=== PATIENT | male | born 1960 | race Caucasian/White ===

== ENCOUNTER 2017-12-12 10:59 | Observation (INO) | payer MEDICARE, OTHER ==
[2017-12-12 11:42] LABS: #Lymphocytes 0.6 thou/uL (1.20-3.40); #Monocytes 0.6 thou/uL (0.11-0.59); #Neutrophils 5.5 thou/uL (1.40-6.50); %Basophils 0.3 % (0.0-1.0); %Eosinophils 0.5 % (0.0-10.0); %Monocytes 9.3 % (0.0-10.0); %Neutrophils 80.8 % (42.0-75.0); Hemoglobin 12.1 g/dL (14.0-18.0); Mean Corpuscular HGB CONC 32.2 g/dL (32.0-36.0); Mean Corpuscular Volume 86.7 fl (80.0-94.0); Mean Platelet Volume 6.5 fL (7.4-10.4); Platelet Count 196 thou/uL (130-400); RBC Distribution Width 13.6 % (11.5-14.5); Red Blood Cell (RBC) Count 4.35 mill/uL (4.70-6.10); White Blood Cell (WBC) Count 6.8 thou/uL (4.8-10.8)
[2017-12-12 12:06] LABS: ALT (SGPT) 20 U/L (8-55); AST (SGOT) 14 U/L (5-34); Albumin 4.1 g/dL (3.5-5.0); Alkaline Phosphatase 69 U/L (40-150); Anion Gap 12 mmol/L (10-20); BUN (Urea Nitrogen) 25 mg/dL (8.4-25.7); Bilirubin, Total 0.5 mg/dL (0.2-1.2); CK (CPK) 33 U/L (30-200); Calc. Creatinine Clearance 0 mL/min (70-130); Calcium 8.7 mg/dL (7.8-10.44); Carbon Dioxide 26 mmol/L (22-29); Chloride 100 mmol/L (98-107); Estimated GFR-MDRD 69; Globulin 1.9 g/dL (2.4-3.5); Glucose 111 mg/dL (70-105); Potassium 4.5 mmol/L (3.5-5.1); Sodium 133 mmol/L (136-145)
[2017-12-12 12:08] LABS: CKMB 0.5 ng/mL (0-6.6); Troponin I 0.011 ng/mL (< 0.028)
--- NOTE | 2017-12-12 12:19 | RAD ---
SINGLE VIEW OF THE CHEST: HISTORY: Chest pain. COMPARISON: None. FINDINGS: Single view of the chest show normal sized cardiomediastinal silhouette. There is no evidence of cons olidation, mass, or pleural effusion. The bones are unremarkable. IMPRESSION: No evidence of acute cardiopulmonary disease. POS: [facility]
[2017-12-12] MEDS ORDERED: Water For Injection,Sterile 20 ML ONE (12:30)
[2017-12-12] MEDS ORDERED: methylPREDNISolone Sod Succ/PF 125 MG/2 ML VIAL ONE (12:30)
[2017-12-12] MEDS ORDERED: Nitroglycerin 2% Ointment 1 INCH/1 GM Packet ONE (12:30)
[2017-12-12] MEDS ORDERED: Albuterol Sulfate 2.5 mg/3 ml Neb ONE (12:45)
[2017-12-12] MEDS ORDERED: Albuterol Sulfate 2.5 mg/0.5 ml Neb ONE (12:45)
[2017-12-12] MEDS ORDERED: Oseltamivir 75 MG CAP PO SCH ×2 (14:00→21:00)
[2017-12-12] MEDS ORDERED: Acetaminophen 325 MG TAB PO PRN ×2 (14:47→14:56)
[2017-12-12] MEDS ORDERED: Ondansetron ODT 4 MG TAB SL PRN (14:47)
[2017-12-12] MEDS ORDERED: Ondansetron HCl/PF 4 MG/2 ML Vial IVP PRN ×2 (14:47→14:56)
[2017-12-12] MEDS ORDERED: Albuterol Sulfate 2.5 mg/3 ml Neb NEB PRN (14:48)
[2017-12-12] MEDS ORDERED: Loperamide HCl 2 MG CAP PO PRN (14:56)
[2017-12-12] MEDS ORDERED: Artificial Tears 18 DROP/0.9 ML EA EYE PRN (14:56)
[2017-12-12] MEDS ORDERED: Eucerin (Mineral Oil/Petrolatum,White) 30 gm Jar TOP PRN (14:56)
[2017-12-12] MEDS ORDERED: Milk Of Magnesia 30 ML UDCUP PO PRN (14:56)
[2017-12-12] MEDS ORDERED: Loratadine 10 MG TAB PO PRN (14:56)
[2017-12-12] MEDS ORDERED: Benzonatate 100 MG CAP PO PRN (14:56)
[2017-12-12] MEDS ORDERED: hydrALAZINE 20 MG/ML VIAL SLOW IVP PRN (14:56)
[2017-12-12] MEDS ORDERED: Senokot 8.6 MG TAB PO PRN (14:56)
[2017-12-12] MEDS ORDERED: Chloraseptic Spray 180 ml Bottle PO PRN (14:56)
[2017-12-12] MEDS ORDERED: Sodium Chloride 0.65% Nasal 44 ML BOT EA NARE PRN (14:56)
[2017-12-12] MEDS ORDERED: Nitroglycerin 0.4 MG TAB (25 Tab Bottle) SL PRN (14:56)
[2017-12-12] MEDS ORDERED: Ondansetron ODT 4 MG TAB PO PRN (14:56)
[2017-12-12] MEDS ORDERED: Mag-Al 1200 mg/1200 mg/30 ML UDCUP PO PRN (14:56)
[2017-12-12] MEDS ORDERED: Zolpidem Tartrate 5 MG TAB PO PRN (14:56)
--- NOTE | 2017-12-12 15:20 | HP ---
PRIMARY CARE PHYSICIAN: [place] call. REASON FOR ADMISSION: Transfer from [facility] for chest pain. HISTORY OF PRESENT ILLNESS: A 57-year-old male who has multiple medical problems including COPD, coronary artery disease, morbid obesity, hypertension, and dyslipidemia, who went to [place] [facility] with complaint of fever, chills, cough, generalized weakness, body ache, runny nose, and sore throat. The patient was having flu-like illness, this started yesterday. He was having cough which was dry in nature and because of cough, he was hurting in his chest and back. He was also hurting entire his body. He was having fever and chills. He was feeling more weak. He started to have runny nose last night. He denies any angina. He denies any orthopnea, PND, or leg swelling. He denies any palpitation, dizziness or syncope. He does have COPD and he is chronically feeling shortness of breath. Last night, he had 2 diarrhea and 1 vomiting. Whenever he takes a deep breath, he has to cough and that cough causing his chest hurt. He denies any recent travel, sick exposure. He denies any abdominal pain. He denies any headache, focal motor or sensory symptoms. This patient was completely tested at [facility] and all blood test was completely normal. His influenza A was positive. Other routine blood tests were unremarkable. This patient was transferred to our emergency room for rule out ACS. PAST MEDICAL HISTORY: Coronary artery disease with stent, peripheral vascular disease, morbid obesity, hypertension, dyslipidemia, gout, COPD, borderline diabetes, ex-smoker. PAST SURGICAL HISTORY: Cardiac catheterization with stent placement. PAST PSYCHIATRIC HISTORY: Reviewed and negative. SOCIAL HISTORY: The patient is a former smoker. He quit smoking last year. He denies any alcohol abuse. He denies any other illicit drug abuse. ALLERGIES: No known drug allergies. CURRENT HOME MEDICATIONS: Daliresp 500 mcg p.o. daily, Dulera 1 inhalation b.i.d., Proventil inhalation q.6 hourly p.r.n., Ranexa 500 mg p.o. b.i.d., Spiriva 18 mcg inhalation daily, Xarelto 20 mg p.o. daily, allopurinol 300 mg p.o. daily, aspirin 81 mg p.o. daily, Lipitor 40 mg p.o. daily, Plavix 75 mg p.o. daily, Lasix 40 mg p.o. b.i.d., gabapentin 300 mg p.o. t.i.d., lisinopril 20 mg p.o. daily, metoprolol 25 mg p.o. b.i.d., ranitidine 150 mg p.o. daily. FAMILY HISTORY: No strong family history of premature coronary artery disease, stroke or cancer. EMERGENCY ROOM COURSE: The patient was given Xopenex nebulization, nitroglycerin sublingual, and Tamiflu. The patient was also given aspirin, Tylenol, morphine 5 mg, and IV fluid. REVIEW OF SYSTEMS: All review of system reviewed and negative except as mentioned in HPI. Constitutional: Weight loss or gain, ability to conduct usual activities. Skin: Rash, itching. Eyes: Double vision, pain. ENT/Mouth: Nose bleeding, neck stiffness, pain, tenderness. Cardiovascular: Palpitations, dyspnea on exertion, orthopnea. Respiratory: Shortness of breath, wheezing, cough, hemoptysis, fever or night sweats. Gastrointestinal: Poor appetite, abdominal pain, heartburn, nausea, vomiting, constipation, or diarrhea. Genitourinary: Urgency, frequency, dysuria, nocturia. Musculoskeletal: Pain, swelling. Neurologic/Psychiatric: Anxiety, depression. Allergy/Immunologic: Skin rash, bleeding tendency. PHYSICAL EXAMINATION: VITAL SIGNS: Currently in our emergency room, blood pressure 98/53, pulse 90, respiratory rate 18, temperature 99.1, saturation 97% on 2 liters oxygen, weight 154.2 kilograms. GENERAL: The patient is currently alert, awake, appears weak, in no obvious acute distress. HEAD: Normocephalic, atraumatic. EYES: Pupils round, reactive to light. Extraocular muscle intact. ENT: Oropharynx within normal limits. Moist mucous membranes. Pharyngeal erythema noted. LUNGS: Wheezing present. Bilateral air entry reduced. No rales. CARDIOVASCULAR: S1, S2 regular. No murmur, no gallop, no rub. CHEST WALL: Tenderness noted. NECK: Supple, no JVD, no thyromegaly, no carotid bruit, no meningeal signs of irritation. ABDOMEN: Morbid obesity limiting examination. Bowel sounds present, nontender , nondistended. No organomegaly, no mass, no suprapubic tenderness. BACK: Unremarkable, no CVA tenderness. EXTREMITIES: Upper extremity: Passive movements of all joints are normal. Lower extremities: No edema. Good peripheral pulsation. Chronic venous insufficiency findings noted on both lower extremities. Hyperkeratosis and chronic skin changes in both lower extremities. Good distal pulsation. SKIN: Chronic hyperkeratosis in lower extremity. PSYCHIATRIC: Normal affect. NEUROLOGIC: The patient is moving all four limbs, plantar bilateral flexor. No focal neurological deficit noted. SIGNIFICANT LABORATORY DATA: EKG showing normal sinus rhythm, left anterior fascicular block. Chest x-ray done at [facility], which is completely normal. Blood test done at [place] [facility], influenza A positive. Sodium 131, potassium 4.4, chloride 97, carbon dioxide 22, anion gap 15, glucose 125, BUN 29, creatinine 1.1, bilirubin 0.9, alkaline phosphatase 74 , AST 20, ALT 28, protein 7.20, albumin 4.5. Lactic acid 1.3. WBC 8.6, hemoglobin 13.0, platelet 213. EKG normal sinus rhythm without any acute ischemic changes. Chest x-ray within normal limits. In our emergency room, CBC normal. Sodium 133. BMP normal. Cardiac enzymes negative. D-dimer also negative 0.38 and chest x-ray also normal. ASSESSMENT AND PLAN: 1. Chest pain. This patient's chest pain is noncardiac, it is related with coughing spell. He has chest wall tenderness. The patient also does not want to go for any stress testing. His troponin is negative. His electrocardiogram is normal and his D-dimer is negative. This patient does not need any further investigation. We will do a total of 3 sets of cardiac enzyme and we will control his pain with pain medication. 2. Influenza A. This patient has fever, chills, body ache, headache, cough, sore throat, runny nose. All symptoms related with influenza and it is tested positive. We will continue with Tamiflu 75 mg p.o. b.i.d. 3. Chronic obstructive pulmonary disease. The patient is taking Daliresp 500 mcg p.o. daily. We will continue Dulera 2 puffs inhalation b.i.d. and DuoNeb q.6 hourly p.r.n., Spiriva 18 mcg inhalation daily. 4. Coronary artery disease with stent. Continue Ranexa 500 mg p.o. b.i.d., aspirin 81 mg p.o. daily, Plavix 75 mg p.o. daily, metoprolol 25 mg p.o. b.i.d. , Lipitor 40 mg p.o. daily, and lisinopril 20 mg p.o. daily. 5. Gout. We will continue allopurinol 300 mg p.o. daily. 6. Hypertension. Continue Lisinopril 20 mg p.o. daily, metoprolol 25 mg p.o. b.i.d. 7. Dyslipidemia. Check lipid profile tomorrow and continue Lipitor 40 mg p.o. at bedtime. 8. History of congestive heart failure. We will repeat echocardiography. We will continue with Lasix 40 mg p.o. b.i.d. 9. Chronic anticoagulation. The patient is taking Xarelto 20 mg p.o. daily and we will check PT/INR. 10. Gastroesophageal reflux disease. We will continue Pepcid 20 mg p.o. b.i.d. 11. Morbid obesity. Dietary education given, weight loss education given. Healthy lifestyle measure discussed with the patient. 12. Deep venous thrombosis prophylaxis. The patient is already on Xarelto therapy. 13. Gastrointestinal prophylaxis. Pepcid 20 mg p.o. b.i.d. 14. Code status: The patient is FULL CODE. The patient does not have any surrogate decision maker. Disposition plan based on clinical course, likely within 24 hours. Plan of care discussed with the patient in detail. [facility]
[2017-12-12] MEDS: Diabetic Tussin 200 MG/10 ML UDCUP PO PRN ×2 (15:39→19:18)
[2017-12-12] MEDS: HYDROcodone/Acetaminophen 5/325 mg Tablet PO PRN ×2 (15:39→19:17)
[2017-12-12] MEDS: Gabapentin 300 MG CAP PO SCH ×2 (15:40→20:20)
[2017-12-12 15:50] LABS: Troponin I 0.015 ng/mL (< 0.028)
[2017-12-12] MEDS: methylPREDNISolone Sod Succ/PF 125 MG/2 ML VIAL IVP SCH (17:43)
[2017-12-12 18:37] LABS: Troponin I Less than 0.010 ng/mL (< 0.028)
[2017-12-12] MEDS: Mometasone/Formoterol 120 PUFF INHALER INH SCH (19:16)
[2017-12-12] MEDS: Famotidine 20 MG TAB PO SCH (20:19)
[2017-12-12] MEDS: Oseltamivir 75 MG CAP PO SCH (20:19)
[2017-12-12] MEDS: guaiFENesin ER 600 MG TAB PO SCH (20:20)
[2017-12-12] MEDS: Metoprolol Tartrate 25 MG TAB PO SCH (20:20)
[2017-12-12] MEDS ORDERED: Atorvastatin Calcium 40 MG TAB PO SCH (21:00)
[2017-12-13] MEDS: methylPREDNISolone Sod Succ/PF 125 MG/2 ML VIAL IVP SCH ×3 (00:02→10:46)
[2017-12-13] MEDS: HYDROcodone/Acetaminophen 5/325 mg Tablet PO PRN (05:38)
[2017-12-13] MEDS: Diabetic Tussin 200 MG/10 ML UDCUP PO PRN (05:39)
[2017-12-13 05:54] VITALS: TEMP 97.9
[2017-12-13] MEDS ORDERED: Rivaroxaban 10 MG TAB PO SCH (06:00)
[2017-12-13] MEDS: Mometasone/Formoterol 120 PUFF INHALER INH SCH (06:46)
[2017-12-13] MEDS ORDERED: Spiriva 18 MCG CAP (Box of 5 Caps) INH SCH (07:00)
[2017-12-13 08:04] VITALS: BP 117/60
[2017-12-13] MEDS ORDERED: Lisinopril 20 MG TAB PO SCH (09:00)
[2017-12-13] MEDS ORDERED: Non-Formulary Item 1 EACH (Roflumilast [Daliresp] 500 MCG) PO SCH (09:00)
[2017-12-13] MEDS ORDERED: Clopidogrel Bisulfate 75 MG TAB PO SCH (09:00)
[2017-12-13] MEDS ORDERED: Roflumilast [Daliresp] 500 MCG PO SCH (09:00)
[2017-12-13] MEDS ORDERED: Allopurinol 300 MG TAB PO SCH (09:00)
[2017-12-13] MEDS ORDERED: Furosemide 40 MG TAB PO SCH (09:00)
[2017-12-13] MEDS: Oseltamivir 75 MG CAP PO SCH (09:24)
[2017-12-13] MEDS: guaiFENesin ER 600 MG TAB PO SCH (09:24)
[2017-12-13] MEDS: Metoprolol Tartrate 25 MG TAB PO SCH (09:24)
[2017-12-13] MEDS: Famotidine 20 MG TAB PO SCH (09:25)
[2017-12-13] MEDS: Gabapentin 300 MG CAP PO SCH (09:25)
--- NOTE | 2017-12-13 10:16 | PDOC.PN ---
- Subjective Encounter Start Date: 12/13/17 Encounter Start Time: 07:20 Patient seen and examined. No new complaints. No overnight events - Objective Resuscitation Status: Resuscitation Status FULL:Full Resuscitation MAR Reviewed: Yes Vital Signs & Weight: Vital Signs (12 hours) Temp Pulse Resp BP Pulse Ox 12/13/17 07:12 97.9 F 79 20 117/60 97 12/13/17 06:46 76 16 12/13/17 06:40 98 12/13/17 06:39 76 16 12/13/17 04:47 97.9 F 76 20 119/65 98 12/13/17 04:40 98 12/13/17 00:25 97.5 F L 75 20 133/67 99 12/12/17 23:25 82 16 Weight Weight 334 lb I&O: 12/12/17 12/13/17 12/14/17 06:59 06:59 06:59 Intake Total 672 Balance 672 Result Diagrams: 12/12/17 11:29 12/12/17 11:29 Phys Exam - Physical Examination Constitutional: NAD HEENT: PERRLA, moist MMs, sclera anicteric Neck: no JVD, supple Respiratory: no wheezing, no rales, no rhonchi Cardiovascular: RRR, no significant murmur, no rub Gastrointestinal: soft, non-tender, no distention, positive bowel sounds Musculoskeletal: no edema, pulses present Neurological: non-focal, normal sensation, moves all 4 limbs Lymphatic: no nodes Psychiatric: normal affect, A&O x 3 Skin: no rash, normal turgor Dx/Plan (1) Chest wall pain Code(s): R07.89 - OTHER CHEST PAIN Status: Acute (2) Influenza A Code(s): J10.1 - FLU DUE TO OTH IDENT INFLUENZA VIRUS W OTH RESP MANIFEST Status: Acute (3) CAD (coronary artery disease) Code(s): I25.10 - ATHSCL HEART DISEASE OF [place] CORONARY ARTERY W/O ANG PCTRS Status: Chronic (4) COPD (chronic obstructive pulmonary disease) Status: Chronic (5) Chronic anticoagulation Code(s): Z79.01 - TRANSCRIPT CLERK (CURRENT) USE OF ANTICOAGULANTS Status: Chronic (6) Chronic venous insufficiency Status: Chronic (7) Dyslipidemia Code(s): E78.5 - HYPERLIPIDEMIA, UNSPECIFIED Status: Chronic (8) GERD (gastroesophageal reflux disease) Code(s): K21.9 - GASTRO-ESOPHAGEAL REFLUX DISEASE WITHOUT ESOPHAGITIS Status: Chronic (9) Gout Code(s): M10.9 - GOUT, UNSPECIFIED Status: Chronic (10) Hypertension Code(s): I10 - ESSENTIAL (PRIMARY) HYPERTENSION Status: Chronic (11) Morbid obesity with BMI of 45.0-49.9, adult Code(s): E66.01 - MORBID (SEVERE) OBESITY DUE TO EXCESS CALORIES; Z68.42 - BODY MASS INDEX (BMI) 45.0-49.9, ADULT Status: Chronic (12) LETY (obstructive sleep apnea) Code(s): G47.33 - OBSTRUCTIVE SLEEP APNEA (ADULT) (PEDIATRIC) Status: Chronic - Plan cont current plan of care, continue antibiotics * medication reviewed as below * symptomatic treatment * see discharge ashley. Review of Systems - Review of Systems ENT: negative: Ear Pain, Ear Discharge, Nose Pain, Nose Discharge, Nose Congestion, Mouth Pain, Mouth Swelling, Throat Pain, Throat Swelling, Other Respiratory: negative: Cough, Dry, Shortness of Breath, Hemoptysis, SOB with Excertion, Pleuritic Pain, Sputum, Wheezing Cardiovascular: negative: chest pain, palpitations, orthopnea, paroxysmal nocturnal dyspnea, edema, light headedness, other Gastrointestinal: negative: Nausea, Vomiting, Abdominal Pain, Diarrhea, Constipation, Melena, Hematochezia, Other Genitourinary: negative: Dysuria, Frequency, Incontinence, Hematuria, Retention , Other Musculoskeletal: negative: Neck Pain, Shoulder Pain, Arm Pain, Back Pain, Hand Pain, Leg Pain, Foot Pain, Other Skin: negative: Rash, Lesions, Griffin, Bruising, Other - Medications/Allergies Allergies/Adverse Reactions: Allergies Allergy/AdvReac Type Severity Reaction Status Date / Time No Known Allergies Allergy Unverified 12/12/17 13:57 Medications: Current Medications Acetaminophen (Tylenol) 650 mg PO Q4H PRN PRN Reason: Headache/Fever or Pain Hydrocodone Bitart/Acetaminophen ([place] 5/325) 1 tab PO Q4H PRN PRN Reason: Moderate Pain (4-6) Last Admin: 12/13/17 05:38 Dose: 1 tab Al Hydroxide/Mg Hydroxide (Maalox) 30 ml PO Q6H PRN PRN Reason: Heartburn or Indigestion Albuterol/Ipratropium (Duoneb) 3 ml NEB [id number] Last Admin: 12/13/17 06:39 Dose: 3 ml Allopurinol (Zyloprim) 300 mg PO DAILY [facility] Last Admin: 12/13/17 09:24 Dose: 300 mg Artificial Tears (Tears Naturale) 0 drop EA EYE PRN PRN PRN Reason: Dry Eyes Aspirin (Aspirin Chewable) 81 mg PO DAILY [facility] Last Admin: 12/13/17 09:24 Dose: 81 mg Atorvastatin Calcium (Lipitor) 40 mg PO HS [facility] Last Admin: 12/12/17 20:20 Dose: 40 mg Benzonatate (Tessalon) 100 mg PO Q4H PRN PRN Reason: Cough Clopidogrel Bisulfate (Plavix) 75 mg PO DAILY [facility] Last Admin: 12/13/17 09:24 Dose: 75 mg Famotidine (Pepcid) 20 mg PO BID [facility] Last Admin: 12/13/17 09:25 Dose: 20 mg Furosemide (Lasix) 40 mg PO BID [facility] Last Admin: 12/13/17 09:25 Dose: 40 mg Gabapentin (Neurontin) 300 mg PO TID [facility] Last Admin: 12/13/17 09:25 Dose: 300 mg Guaifenesin (Robitussin Sf) 200 mg PO Q4H PRN PRN Reason: Cough Last Admin: 12/13/17 05:39 Dose: 200 mg Guaifenesin (Mucinex) 600 mg PO Q12HR [facility] Last Admin: 12/13/17 09:24 Dose: 600 mg Hydralazine HCl (Apresoline) 10 mg SLOW IVP Q4H PRN PRN Reason: Systolic BP > 180 Lisinopril (Zestril) 20 mg PO DAILY [facility] Last Admin: 12/13/17 09:24 Dose: 20 mg Loperamide HCl (Imodium) 2 mg PO PRN PRN PRN Reason: Diarrhea/Loose Stools Loratadine (Claritin) 10 mg PO DAILYPRN PRN PRN Reason: Sinus Symptoms Magnesium Hydroxide (Milk Of Magnesium) 30 ml PO DAILYPRN PRN PRN Reason: Constipation Methylprednisolone Sodium Succinate (Solu-Medrol) 40 mg IVP Q6HR [facility] Last Admin: 12/13/17 05:28 Dose: 40 mg Metoprolol Tartrate (Lopressor) 25 mg PO BID [facility] Last Admin: 12/13/17 09:24 Dose: 25 mg Mineral Oil/White Petrolatum (Eucerin Cream) 0 gm TOP BIDPRN PRN PRN Reason: Dry Skin Mometasone Furoate/Formoterol Fumar (Dulera 200 Mcg/5 Mcg Inhaler) 2 puff INH BID-RT [facility] Last Admin: 12/13/17 06:46 Dose: 2 puff Nitroglycerin (Nitrostat) 0.4 mg SL Q5MIN PRN PRN Reason: Chest Pain Ondansetron HCl (Zofran Odt) 4 mg PO Q6H PRN PRN Reason: Nausea/Vomiting Ondansetron HCl (Zofran) 4 mg IVP Q6H PRN PRN Reason: Nausea/Vomiting Oseltamivir Phosphate (Tamiflu) 75 mg PO BID [facility] Stop: 12/17/17 09:01 Last Admin: 12/13/17 09:24 Dose: 75 mg Roflumilast [ (Daliresp] 500 Mcg) 0 each PO DAILY [facility] Phenol (Chloraseptic [place] 180 Ml Bot) 0 ml PO PRN PRN PRN Reason: Sore Throat Ranolazine (Ranexa) 500 mg PO BID [facility] Last Admin: 12/13/17 09:24 Dose: 500 mg Rivaroxaban (Xarelto) 20 mg PO 0600 [facility] Last Admin: 12/13/17 05:28 Dose: 20 mg Senna (Senokot) 2 tab PO HSPRN PRN PRN Reason: Constipation Sodium Chloride ([place] Nasal [place] 0.65%) 0 ml EA NARE QIDPRN PRN PRN Reason: Nasal Congestion Sodium Chloride (Flush - Normal Saline) 10 ml IVF PRN PRN PRN Reason: Saline Flush Last Admin: 12/13/17 05:28 Dose: 10 ml Zolpidem Tartrate (Ambien) 5 mg PO HSPRN PRN PRN Reason: Insomnia
--- NOTE | 2017-12-13 11:53 | DIS ---
PRIMARY CARE PHYSICIAN: Fabienne baum. DATE OF ADMISSION: 12/12/2017 DATE OF DISCHARGE: 12/13/2017 DISCHARGE DISPOSITION: Home. PRIMARY DISCHARGE DIAGNOSES: 1. Chest wall pain due to cough. 2. Influenza A. 3. Mild acute bronchitis. SECONDARY DISCHARGE DIAGNOSES: Morbid obesity with BMI of 45, obstructive sleep apnea on CPAP, hyper tension, gout, gastroesophageal reflux disease, chronic diastolic heart failure, dyslipidemia, COPD, chronic venous insufficiency, chronic anticoagulation, coronary artery disease. PRIMARY PROCEDURE/OPERATION: None. RADIOLOGICAL INVESTIGATION: Chest x-ray normal. SIGNIFICANT LABORATORIES: WBC 6.8, hemoglobin 12.1, platelets 196. D-dimer 0.38. Sodium 133, creat inine 1.10. Cardiac enzymes negative. BNP 20, LDL 103. Discharge influenza screen was positive for influenza A. DISCHARGE MEDICATIONS: Ventolin nebulization q.6 hourly p.r.n., Ventolin HFA 2 puffs q.6 hourly p.r. n., allopurinol 300 mg p.o. daily, Augmentin 875 mg twice daily for 7 days, aspirin 81 mg p.o. daily, Lipitor 40 mg p.o. at bedtime, Tessalon 100 mg q.4 hourly p.r.n., Plavix 75 mg p.o. daily, Lasix 40 mg p.o. b.i.d., gabapentin 300 mg p.o. t.i.d., Mucinex 600 mg twice daily for 7 days, lisinopril 20 m g p.o. daily, metoprolol tartrate 25 mg p.o. b.i.d., Dulera 2 puffs inhalation b.i.d., Tamiflu 75 mg p.o. b.i.d. for 4 more days, prednisone 40 mg p.o. daily for 7 days, ranitidine 150 mg p.o. daily, Ra nexa 500 mg p.o. b.i.d., Xarelto 20 mg p.o. daily, Daliresp 500 mcg p.o. daily, Spiriva 18 mcg inhala tion daily. CONTRAINDICATIONS: None. CODE STATUS: FULL CODE. INPATIENT CONSULTANTS: None. ALLERGIES: No known drug allergy. DISCHARGE PLAN: Post hospital, the patient will follow up with primary care physician in 1 week. HOSPITAL COURSE: A 57-year-old male who was admitted by me. Please see my HPI for further details. This patient was having flu-like symptoms and he was tested at [facility] in [facility] and he was positive for influenza. He was having severe cough and because of cough, he was having chest pain. His routine blood test over there at [facility] was completely normal. His cardiac enzymes were negative. BNP is also normal. This patient was transferred to our hospital fo r symptomatic treatment and to rule out ACS. His telemetry remained unremarkable. Serial cardiac en zymes were negative. D-dimer was negative. This patient did not have any cardiac, pain, or anginal pain and he also did not want to go for any kind of further testing regarding heart. He was treated symptomatically for influenza A as well as he was treated with Tamiflu. The next day, the patient cheng d significant improvement, we prescribed Tessalon, Mucinex, Tamiflu and prednisone upon discharge and empiric antibiotic therapy with Augmentin and the rest of medication will be continued as per previo us. The patient is seen and examined at bedside today. Please see my progress note from today for furthe r details.
--- NOTE | 2017-12-14 17:35 | EKG ---
Test Reason : Blood Pressure : / mmHG Vent. Rate : 092 BPM Atrial Rate : 092 BPM P-R Int : 176 ms QRS Dur : 096 ms QT Int : 354 ms P-R-T Axes : 019 -55 034 degrees QTc Int : 437 ms Normal sinus rhythm Left anterior fascicular block Abnormal ECG Confirmed by TEREZA PAZ D.O. ([id number]), health editor ANA MELGOZA ([id number] on 12/14/2017 5:35:16 PM Referred By: Confirmed By:TEREZA PAZ D.O.
== END 2017-12-13 13:04 | disposition home or self-care (01) ==
LOC: ERS 10:59 → 2SW 12:46
PROVIDERS: ADMIT Internal Medicine; ATTEND Internal Medicine
DX: J10.1 Influenza due to other identified influenza virus with other respiratory manifestations (principal); R05 Cough; R07.89 Other chest pain; G47.33 Obstructive sleep apnea (adult) (pediatric); M10.9 Gout, unspecified; K21.9 Gastro-esophageal reflux disease without esophagitis; E78.5 Hyperlipidemia, unspecified; J44.9 Chronic obstructive pulmonary disease, unspecified; I25.10 Atherosclerotic heart disease of native coronary artery without angina pectoris; I87.2 Venous insufficiency (chronic) (peripheral); I11.0 Hypertensive heart disease with heart failure; I50.32 Chronic diastolic (congestive) heart failure; E66.01 Morbid (severe) obesity due to excess calories; Z68.42 Body mass index [BMI] 45.0-49.9, adult; Z87.891 Personal history of nicotine dependence; Z79.01 Long term (current) use of anticoagulants; Z79.02 Long term (current) use of antithrombotics/antiplatelets; Z79.899 Other long term (current) drug therapy; Z95.5 Presence of coronary angioplasty implant and graft; Z99.89 Dependence on other enabling machines and devices
CPT/HCPCS: 36415; 71045; 80053; 80061; 82553; 83880; 84484; 85025; 85379; 93005; 94640; 94660; 94760; 96374; 96376; A4216; G0378; J2930; J7611; J7620

== ENCOUNTER 2019-02-21 10:50 | Inpatient (IN) | payer OTHER ==
[2019-02-21] MEDS ORDERED: Ondansetron PF 4 MG/2 ML Vial IVP PRN (12:21)
[2019-02-21] MEDS ORDERED: Gabapentin 300 MG CAP PO PRN (12:22)
--- NOTE | 2019-02-21 12:55 | PDOC.EVN ---
Event Note - Event Note Event Note: H&P #[id number]
[2019-02-21 13:06] VITALS: BMI 46.6
[2019-02-21] MEDS: Azithromycin 500 MG in Sodium Chloride 0.9% 250 ML 250 ML IVPB SCH (13:40)
[2019-02-21] MEDS ORDERED: cefTRIAXone\\ROCEPHIN 2 GM in Sodium Chloride 0.9% 100 ML IVPB SCH (14:00)
[2019-02-21] MEDS ORDERED: Azithromycin 500 MG in Sodium Chloride 0.9% 250 ML 250 ML IVPB SCH (14:00)
[2019-02-21] MEDS ORDERED: Sodium Chloride 0.9% 1,000 ML IV SCH (14:00)
[2019-02-21 14:44] LABS: Troponin I Less than 0.010 ng/mL (< 0.028)
[2019-02-21] MEDS: cefTRIAXone\\ROCEPHIN 1 GM in Sodium Chloride 0.9% 100 ML IVPB SCH (15:59)
--- NOTE | 2019-02-21 17:37 | ULT ---
Venous duplex sonogram bilateral lower extremity HISTORY: Bilateral leg pain and edema. FINDINGS: Each common femoral vein and greater saphenous junction were evaluated. The mid to distal p ortion of the femoral veins were obscured. Remainder of the femoral veins and the popliteal veins were well visualized. Good color and spectral Doppler flow and compression. IMPRESSION: No sonographic evidence of DVT within either lower extremity.
[2019-02-21] MEDS ORDERED: Furosemide 40 MG/4 ML VIAL SLOW IVP SCH (18:00)
--- NOTE | 2019-02-21 20:01 | CON ---
DATE OF CONSULTATION: 02/21/2019 PRIMARY CARE DOCTOR: Unknown. PRIMARY PLANNING MANAGER: Jessica Osborn MD REASON FOR CARDIOLOGY CONSULT: Congestive heart failure, decompensation. HISTORY OF PRESENT ILLNESS: Mr. Hatch is a [id number]-apo male with a significant history of coronary artery disease with A.F.R.O. with stent placement in 2016 for PVD, hypertension, COPD, sleep apnea with CPAP at night, and history of bilateral PE in 2013 or 2014 with Xarelto, and ex-smoker, quit 3 days ago. He presents to the emergency department from [facility] to the [facility] for possible sepsis and right lower lobe pneumonia. The patient had had severe cough with yellow sputum for a couple of weeks. He finished antibiotic for seven days, which was given by his primary care doctor; however, his symptoms did not improve, so he called his primary care doctor again and he was recommended to present to the emergency department for further evaluation and treatment. He also complained of sharp pain to bilateral chest since February 04. The patient's symptoms became worse with cough. Nitroglycerin was prescribed for this patient. He took it 2 or 3 times, did not help his symptoms. He denied any other cardiac complaints prior to this as mentioned. However, he had a stress test done at his fiscal economist office by Dr. Parish Morocho at [place] last week, and he was told that he needs another cardiac catheterization. He has a history of stent placement in RCA in April 2017. Also, he underwent A.F.R.O. and stent placement to the right lower extremity at [facility] in [place] six months ago. He also had echocardiogram done in 2017. He does not remember the result. He has had chronic lower extremity edema more than 10 years with discoloration. Within the last week, he started drinking more fluid lately due to cough and dryness in his mouth. He sleeps on recliner. He stated that he cannot sleep on the supine position anymore. He quit smoking tobacco 3 days ago. He used to smoke 1.5-pack a day. At this moment, during the initial Cardiology consult, the patient denied any chest pain, heaviness, tightness, dizziness, lightheadedness, palpitation, fluttering in his chest or any other cardiac complaints except worsening of shortness of breath with talking and movement. PAST MEDICAL HISTORY: Coronary artery disease; severe peripheral vascular disease; hypertension; gout; hyperlipidemia; COPD; sleep apnea, uses CPAP at night; bilateral PE with Xarelto in 2013 or 2014. PAST SURGICAL HISTORY: Stent placement in RCA in April 2017 and two stents placement in right leg back in 2017, colonoscopy 7 days ago with negative result, and left hand surgery. FAMILY HISTORY: The patient's father due to [place] around the age of 70. He also had a medical history of hypertension and CVA. The patient's mother had a history of pacemaker placement and diabetes. The patient's maternal grandmother has a history of diabetes. SOCIAL HISTORY: He is . He has one child, who is living well. He is living with his sister and his nephew living close by. He is an ex-smoker. He quit three days ago. He used to smoke 1-1/2-pack a day. He used to drink every day until 2013 and now he drinks weekend; however, he drinks at least 8 beers a day when he started drinking. He denied illicit drug abuse. He does not do any exercise. ALLERGIES: NO KNOWN DRUG ALLERGIES. HOME MEDICATIONS: 1. Gabapentin 300 mg 3 times a day. 2. Albuterol. 3. Atorvastatin 40 mg once a day. 4. Allopurinol 300 mg once a day. 5. Spiriva 18 mcg once a day. 6. Xarelto 20 mg once a day. 7. Dulera two puffs twice a day. 8. Plavix 75 mg once a day. 9. Aspirin 81 mg once a day. 10. Metoprolol 25 mg twice a day. 11. Lisinopril 20 mg once a day. 12. Furosemide 80 mg once a day. REVIEW OF SYSTEMS: Twelve-point review of systems is negative unless otherwise mentioned in HPI. The patient denied blood in urine or stool. The patient had a BM yesterday; however, he complained of distended abdomen today. He denied claudication with walking. PHYSICAL EXAMINATION: VITAL SIGNS: Blood pressure 106/55, temperature 98, pulse 81 and sinus rhythm, respiratory rate 20, and O2 sat 96% with 3 L nasal cannula. GENERAL: The patient is alert and oriented x4, not in acute distress unless the patient is talking or movement. HEENT: Head, normocephalic and atraumatic. Eyes, extraocular muscle movement intact. ENT and mouth, oral and nasal mucosa moist without lesion. NECK: Supple. Normal range of motion. No JVD. RESPIRATORY: Very diminished at the bases, wheezing, coarse. CARDIOVASCULAR: Regular rate and rhythm. Normal S1 and S2. There are no S3 or S4. No significant murmur, hives or thrills noted. 2+ pulses in bilateral upper extremities, but 1+ pulses in right lower extremity, 2+ pulses in left lower extremity. EDEMA: He has 2 to 3+ edema in the right lower extremity and a 2+ edema in the left lower extremity with discoloration. ABDOMEN: Very distended, but denies any discomfort with palpation to the side. Bowel sounds are very hypoactive, but present. SKIN: Warm and dry. Discoloration to bilateral lower extremities, but no bruise, lesion or rash otherwise. MUSCULOSKELETAL: The patient is able to move all extremities without difficulty except worsening of shortness of breath with mild exertion. PSYCHIATRIC: The patient's mood is appropriate. NEUROLOGIC: The patient is alert and oriented x4. Nonfocal. LABORATORY DATA: WBC 13.7, hemoglobin 13.0, hematocrit 41.7, and platelet 169. D-dimer 0.87. Sodium 137, potassium 4.8, BUN 20, creatinine 0.92, and glucose 146. Lactic acid 1.3. AST 22 and ALT 50. CK-MB 0.5 and CK 33. Troponin is negative. BNP 267. Cholesterol, total pressure 155, triglycerides 64, HDL 39, and LDL 103. DIAGNOSTIC DATA: Chest x-ray shows stable mild cardiomegaly. ASSESSMENT/PLAN: 1. Acute on chronic heart failure, although the patient's BNP is around 200. The patient has chronic edema in lower extremities and distended abdomen. The patient cannot sleep on the supine position. The patient requires several pillows to raise his legs to sleep. We suspect the patient has some degree of congestive heart failure. Also, the patient has a stent placement. The patient may have cardiomyopathy. Echocardiogram was ordered in this admission. Also, we are getting medical record from his primary fiscal economist. Lasix 40 mg IV push one time dose will be given today to see how he responds. The metolazone might be the next choice for this patient to increase the diuretic. He is on beta-domo, metoprolol 25 mg twice a day, and lisinopril 20 mg once a day. 2. Pneumonia, which is managed by primary care doctor. He is already on some antibiotic. 3. Coronary artery disease, status post stent placement. The patient's condition is stable at this moment. Again, the patient is on beta-domo, Plavix, aspirin, and atorvastatin. 4. Peripheral vascular disease with stent placement to the right lower extremity in 2018. He is on Plavix and aspirin at this moment. We would like to continue to monitor. 5. History of pulmonary embolism. The patient reports that he had a couple of years ago. Since then, he has been on Xarelto 20 mg once a day. Until clear, we would like to keep the Xarelto 20 mg once a day. Heparin is going to be discontinued since he is on Xarelto for anticoagulant and Plavix and aspirin for antiplatelet to prevent his risk of bleeding. 6. Hypertension. His blood pressure is stable at this moment with current medication. 7. Hyperlipidemia. He is on statin. 8. Sleep apnea. At this moment, he does not have his CPAP machine in his room. 9. Gout. He is on allopurinol 300 mg. 10. Chronic obstructive pulmonary disease. He does not have any nebulizer order, but the patient had Mucinex and Tessalon. At this moment, maybe the patient requires extra breathing treatment, such as nebulizer for this patient. 11. Ex-smoker, tobacco abuse and EtOH abuse, although the patient quit smoking 3 days ago. We encouraged him to continue smoking cessation, and also we encouraged him to do EtOH cessation due to high risk of weakening of his heart. He voiced understand that he is willing to quit smoking and EtOH. Thank you very much for allowing the Cardiology Service to participate in the care of this patient. We will follow along the patient's care team and make further recommendations as appropriate. Job ID: [id number]
--- NOTE | 2019-02-21 20:44 | HP ---
CHIEF COMPLAINT: Shortness of breath and cough. HISTORY OF PRESENT ILLNESS: This is a 59-year-old male, who apparently smoke 1 pack a day for 40 years, having quit about 3 days ago, comes in complaining of cough and fevers. He was seen at an outside ER, where he was found to have elevated temperatures as well as cough, and a chest x-ray, which showed right lower lobe pneumonia. The patient was transferred here to [facility], where admission was recommended at that point in time. On evaluation, the patient stated that he felt a little bit better after the antibiotics were given and the steroids were given. He states that he still has cough and feels febrile, had chills earlier in the day. The patient admits, of note, to a history of congestive heart failure with stents in the heart as well as 2 stents in the femoral artery in the right lower leg, significant vascular disease. The patient states that his primary care doctor is Dr. Morocho. He is unable to recall the name of his manager ethics. The patient states that upon ambulation he does get exertional dyspnea. Denies any chest pains or discomfort. Does have shortness of breath; however, no other alleviating or aggravating factors. The patient has not felt like this prior in the past. The patient is seen and examined in the ER. No family at bedside. All questions answered. PAST MEDICAL HISTORY: Positive for; 1. Cardiac catheterization with stenting. 2. Vascular disease. 3. COPD. 4. Recent discontinuation of smoking, however, smoking history. 5. Hypertension. 6. Gout. 7. Hyperlipidemia. 8. Sleep apnea. SOCIAL HISTORY: Drinks anywhere from 8 to 12 bottles of beer a week. A 40-year pack-year smoking history, quit 3 days ago. PHYSICAL EXAMINATION: VITAL SIGNS: Blood pressure 110/65, pulse of 97, respiratory rate of 24, temperature of 99, O2 saturations is 98% on room air. REVIEW OF SYSTEMS: All systems reviewed. Pertinent positives in history of present illness, otherwise negative. HOME MEDICATIONS: See MAR. PHYSICAL EXAMINATION: GENERAL: The patient is lying in bed, morbidly obese, in mild discomfort. HEENT: Pupils are equal, round, and reactive to light and accommodation. Oral cavity, moist and pink. Face appears slightly swollen. CARDIOVASCULAR: Distant heart sounds. Borderline tachycardia. S1, S2. No murmurs, rubs, or gallops appreciated. PULMONARY: Distant lung sounds as well. No respiratory distress. Right lower lobe breath sounds decreased. ABDOMEN: Positive bowel sounds. Soft, nontender, nondistended, rotund. EXTREMITIES: 3+ pitting edema with hypertrophic skin of the lower extremities. Posterior popliteal pulses positive of the lower extremities, 2+. Radial pulses 2+ positive of upper extremities. NEUROLOGIC: Cranial nerves 2 through 12 intact. No loss of motor or sensory function. LABORATORY DATA: CBC reviewed. Chest x-ray reviewed. ASSESSMENT: 1. Right middle lobe and right lower lobe pneumonia. 2. Hypertension. 3. Congestive heart failure. 4. Hypervolemic state. 5. Metabolic alkalosis. 6. Gout. 7. Hyperlipidemia. 8. Coronary artery disease. 9. Peripheral vascular disease. 10. Obesity. PLAN: 1. At this point in time, we will admit the patient to Internal Medicine Team. Hold off on any IV fluids for now, given his overt hypervolemic state. We will resume blood pressure medications, to be held if systolic less than 120 for all blood pressure medications; for beta blockers, to be held if heart rate less than 60; and that the PANCHO inhibitors be held if the potassium is above 5.5. 2. We will start the patient on Rocephin and azithromycin. 3. Blood cultures ordered and pending. 4. Labs in the morning. 5. We will obtain echocardiogram. 6. Consult Cardiology as well. 7. Trend troponins. 8. The patient wishes to remain full code. 9. We will continue his aspirin, Plavix, and Xarelto at home for his peripheral vascular disease with stents, which were done recently and given the fact that he has significant history of vascular disease. 10. We will also obtain bilateral lower extremity Doppler to rule out DVTs unlikely; however, given the patient's condition, and massive smoking history, it is not an unreasonable thing to consider. Case and plan discussed with the patient at length. He again wishes to remain a full code. He understood and agreed with the above plan. Job ID: [id number]
[2019-02-21] MEDS ORDERED: Heparin 5,000 UNITS/ML VIAL SC SCH (21:00)
[2019-02-21 21:33] LABS: Troponin I 0.011 ng/mL (< 0.028)
[2019-02-21] MEDS: Zolpidem Tartrate 5 MG TAB PO PRN (21:45)
[2019-02-21] MEDS: Benzonatate 100 MG CAP PO PRN (21:45)
[2019-02-21] MEDS: Metoprolol Tartrate 25 MG TAB PO SCH (21:46)
[2019-02-21] MEDS: Atorvastatin Calcium 40 MG TAB PO SCH (21:46)
[2019-02-21] MEDS: guaiFENesin ER 600 MG TAB PO PRN (21:50)
[2019-02-22 05:10] LABS: #Lymphocytes 0.6 thou/uL (1.20-3.40); #Monocytes 0.7 thou/uL (0.11-0.59); #Neutrophils 11.7 thou/uL (1.40-6.50); %Basophils 0.1 % (0.0-1.0); %Eosinophils 0.2 % (0.0-10.0); %Lymphocytes 4.3 % (21.0-51.0); %Monocytes 5.6 % (0.0-10.0); %Neutrophils 89.8 % (42.0-75.0); Hemoglobin 12.4 g/dL (14.0-18.0); Mean Corpuscular HGB CONC 31.3 g/dL (32.0-36.0); Mean Corpuscular Hemoglobin 28.4 pg (27.0-31.0); Mean Corpuscular Volume 90.6 fL (78.0-98.0); Mean Platelet Volume 7.8 fL (7.4-10.4); Platelet Count 175 thou/uL (130-400); RBC Distribution Width 13.3 % (11.5-14.5); Red Blood Cell (RBC) Count 4.38 mill/uL (4.70-6.10)
[2019-02-22 05:22] LABS: Troponin I Less than 0.010 ng/mL (< 0.028)
[2019-02-22 05:24] LABS: Anion Gap 11 mmol/L (10-20); BUN (Urea Nitrogen) 23 mg/dL (8.4-25.7); Calc. Creatinine Clearance 178 mL/min (70-130); Calcium 9.1 mg/dL (7.8-10.44); Carbon Dioxide 33 mmol/L (22-29); Chloride 97 mmol/L (98-107); Estimated GFR-MDRD 78; Glucose 180 mg/dL (70-105); Potassium 5.1 mmol/L (3.5-5.1); Sodium 136 mmol/L (136-145)
[2019-02-22] MEDS: Acetaminophen 325 MG TAB PO PRN ×3 (05:29→20:41)
[2019-02-22] MEDS: Allopurinol 300 MG TAB PO SCH (08:45)
[2019-02-22] MEDS: Metoprolol Tartrate 25 MG TAB PO SCH ×2 (08:45→20:42)
[2019-02-22] MEDS: Clopidogrel Bisulfate 75 MG TAB PO SCH (08:45)
[2019-02-22] MEDS: Rivaroxaban 10 MG TAB PO SCH (08:45)
[2019-02-22] MEDS: Lisinopril 20 MG TAB PO SCH (08:45)
[2019-02-22] MEDS: Aspirin 81 mg Enteric Coated Tablet PO SCH (08:46)
--- NOTE | 2019-02-22 10:54 | PDOC.PN ---
- Subjective Encounter Start Date: 02/22/19 Encounter Start Time: 10:52 Patient seen and examined, no new issues, all questions answered, no famly at bedside. - Objective Vital Signs & Weight: Vital Signs (12 hours) Temp Pulse Resp BP BP Pulse Ox 02/22/19 08:45 118/64 02/22/19 07:45 97.4 F L 82 18 104/64 96 02/22/19 04:00 98.5 F 83 19 131/64 97 02/22/19 00:00 98.8 F 87 15 119/95 H 97 Weight Weight 342 lb 9.573 oz I&O: 02/21/19 02/22/19 02/23/19 06:59 06:59 06:59 Intake Total 1070 Output Total 2650 Balance -1580 Result Diagrams: 02/22/19 04:16 02/22/19 04:16 Phys Exam - Physical Examination Constitutional: NAD (obese) HEENT: PERRLA, moist MMs, sclera anicteric Neck: no nodes, no JVD, supple Respiratory: wheezing present no respiratory distress Cardiovascular: RRR, no significant murmur, no rub Gastrointestinal: soft, non-tender, no distention, positive bowel sounds Musculoskeletal: pulses present, edema present (2+) Dx/Plan (1) CAD (coronary artery disease) Code(s): I25.10 - ATHSCL HEART DISEASE OF [place] CORONARY ARTERY W/O ANG PCTRS Status: Chronic (2) COPD (chronic obstructive pulmonary disease) Status: Chronic (3) Dyslipidemia Code(s): E78.5 - HYPERLIPIDEMIA, UNSPECIFIED Status: Chronic (4) GERD (gastroesophageal reflux disease) Code(s): K21.9 - GASTRO-ESOPHAGEAL REFLUX DISEASE WITHOUT ESOPHAGITIS Status: Chronic (5) Hypertension Code(s): I10 - ESSENTIAL (PRIMARY) HYPERTENSION Status: Chronic (6) Morbid obesity with BMI of 45.0-49.9, adult Code(s): E66.01 - MORBID (SEVERE) OBESITY DUE TO EXCESS CALORIES; Z68.42 - BODY MASS INDEX (BMI) 45.0-49.9, ADULT Status: Chronic - Plan * cont steroids + abx for now, wheezing improved but not gone * echo pending * cont diuretics * renal evaluation pending * DC plans in 24-48hrs if patient feeling better and cleared from subspecialists * case and plan d/w patient at length, he understood and agreed with this plan.
[2019-02-22] MEDS: Azithromycin 500 MG in Sodium Chloride 0.9% 250 ML 250 ML IVPB SCH (12:06)
[2019-02-22] MEDS: cefTRIAXone\\ROCEPHIN 1 GM in Sodium Chloride 0.9% 100 ML IVPB SCH (13:47)
--- NOTE | 2019-02-22 16:20 | PDOC.CTH ---
Cardiology Progress Note - Subjective The pt seen and examined. No overnight events. No cardiac complaints. His BLE edema has been improving very well with PANCHO wrap (Thank you to [facility] staff!) - Objective Vital Signs Temp Pulse Resp BP BP Pulse Ox 02/22/19 15:16 98 F 90 20 107/52 L 94 L 02/22/19 12:17 97.8 F 79 18 104/61 96 02/22/19 08:45 118/64 02/22/19 07:45 97.4 F L 82 18 104/64 96 Weight 342 lb 9.573 oz 02/21/19 02/22/19 02/23/19 06:59 06:59 06:59 Intake Total 1070 Output Total 2650 Balance -1580 - Physical Examination General/Neuro: alert & oriented x3 Neck: no JVD present Lungs: other: (wheezing and very diminished at bases) Heart: RRR Abdomen: soft Extremities: other: (2-3+ pitting edema) - Telemetry Telemetry Rhythm: SR - Labs Result Diagrams: 02/22/19 04:16 02/22/19 04:16 Troponin/CKMB Troponin I Less than 0.010 ng/mL (< 0.028) 02/22/19 04:16 - Assessment/Plan 1. Acute on CHF - his Resp is stable with Lasix IV; On Lasix, Lisinopril and Metoprolol, which may change to Coreg or Bystolic for hx of COPD and depend on Echo result 2. CAD with hx of stent in 2017 - stable; on Plavix, ASA, bblocker, and statin 3. Severe PVD with stent x2 in 2018 - stable; on Plavix, ASA, bblocker, and statin 4. HTN - stable 5. Hyperlipidemia - on Statin 6. COPD - will request Pulm. consult 7. Sleep apnea with Cpap at HS 8. Gout - 9. Tobacco/ETOH abuse - smoking/ETOH cessation education given to the pt MAR reviewed Pt. seen and eval. by me. I agree with the A/P by the ROOM SERVER. Decreased BS, wheezing. RRR. Echo: RV dilatation. Change to Bystolic. Review of Systems - Review of Systems Constitutional: reports: no symptoms reported EENTM: reports: no symptoms reported Respiratory: reports: cough, shortness of breath, SOB with excertion Cardiac (ROS): reports: no symptoms reported ABD/GI: reports: no symptoms reported : reports: no symptoms reported
[2019-02-22] MEDS ORDERED: Furosemide 40 MG/4 ML VIAL SLOW IVP SCH (17:15)
[2019-02-22] MEDS: Benzonatate 100 MG CAP PO PRN ×2 (18:05→20:40)
[2019-02-22] MEDS: Albuterol Sulfate 1.25 MG/3 ML NEB NEB SCH (19:38)
[2019-02-22] MEDS: Atorvastatin Calcium 40 MG TAB PO SCH (20:40)
[2019-02-22] MEDS: guaiFENesin ER 600 MG TAB PO PRN (20:41)
[2019-02-22] MEDS: Zolpidem Tartrate 5 MG TAB PO PRN (20:41)
[2019-02-23] MEDS: Albuterol Sulfate 1.25 MG/3 ML NEB NEB SCH ×2 (00:10→06:41)
[2019-02-23] MEDS: Acetaminophen 325 MG TAB PO PRN (00:29)
[2019-02-23] MEDS ORDERED: Morphine 2 MG/ML SYRINGE SLOW IVP SCH (02:00)
[2019-02-23] MEDS: Furosemide 40 MG/4 ML VIAL SLOW IVP SCH ×2 (05:38→13:25)
[2019-02-23] MEDS: HYDROcodone/Acetaminophen 5/325 mg Tablet PO PRN ×4 (07:03→23:05)
[2019-02-23] MEDS: Lisinopril 20 MG TAB PO SCH (08:18)
[2019-02-23] MEDS: Clopidogrel Bisulfate 75 MG TAB PO SCH (08:19)
[2019-02-23] MEDS: Rivaroxaban 10 MG TAB PO SCH (08:19)
[2019-02-23] MEDS: Allopurinol 300 MG TAB PO SCH (08:20)
[2019-02-23] MEDS: Aspirin 81 mg Enteric Coated Tablet PO SCH (08:20)
--- NOTE | 2019-02-23 10:08 | CON ---
DATE OF CONSULTATION: 02/21/2019 ADDENDUM: INDICATION FOR CONSULTATION: This is a 59-year-old gentleman who was admitted with pneumonia, who also has a long history of coronary artery disease. He had some, what was felt to be some CHF, also CHF exacerbation with decompensation, most likely associated with coughing and pneumonia. HISTORY OF PRESENT ILLNESS: This is a 59-year-old gentleman who actually appears older than his stated age. He has significant coronary artery disease as well as peripheral vascular disease, hypertension, COPD, and sleep apnea. He has also had pulmonary emboli for which he has been treated with Xarelto. He is a smoker. He said he stopped at least a few days ago, but mostly likely he stopped due to his coughing. He presented with possible sepsis and right lower lobe pneumonia. He has been having a productive cough for several weeks. He has been on antibiotics but has not cleared up the situation. He presented to the emergency room. He also been complaining of some significant chest discomfort with sharp pains for the last couple of weeks. He knows that the cough is becoming worse. Nothing seemed to help the cough. He continued to have some discomfort. He had taken actually nitroglycerin. This also did not help the discomfort. He has undergone a stress test by his epilepsy physician in [place] and was told that perhaps he would need to undergo another cardiac catheterization. Dr. Pieter Morocho is a new epilepsy physician for the patient and he has not placed stents before these were done at a different facility, but did undergo his last cardiac catheterization in 2017 where he had a stent placed in the right coronary artery. He also has stents placed in the lower extremity on the right lower extremity, which apparently was performed in [place] and he said this did improve his discomfort in the right lower leg. He still had some tingling, but otherwise seemed to be doing quite better. The patient himself denied any chest pain. He is mainly just concerned about the coughing and at this time, during my physical examination and history with the patient, he continued to cough most of the time. He does have sleep apnea and is awaiting his family members to bring his CPAP machine. PAST MEDICAL HISTORY: Please refer the notes dictated by my nurse practitioner. SOCIAL HISTORY: Please refer the notes dictated by my nurse practitioner. FAMILY HISTORY: Please refer the notes dictated by my nurse practitioner. REVIEW OF SYSTEMS: Please refer the notes dictated by my nurse practitioner. ALLERGIES: PLEASE REFER THE NOTES DICTATED BY MY NURSE PRACTITIONER. MEDICATIONS: Please refer the notes dictated by my nurse practitioner. PHYSICAL EXAMINATION: GENERAL: Reveals a well-developed, well-nourished, obese gentleman, who is coughing quite frequently during the examination. VITAL SIGNS: Blood pressure 106/55. He is afebrile. Respiratory rate is about 20. Heart rates in the 80s and shows a sinus rhythm. HEENT: Unremarkable. CHEST: His chest actually has decreased breath sounds and wheezing throughout. CARDIOVASCULAR EXAM: Reveals a regular rate and rhythm. I did not hear any significant S3 or S4. He had no significant murmurs, heaves, thrills, bruits, or rubs. However. Heart sounds are somewhat distant due to his chronic obstructive pulmonary disease. EXTREMITIES: Showed minimal lower extremity edema. I could not palpate any pulses on the right lower extremity or from the popliteal all the way down to the foot. NEUROLOGIC: The patient appears to be intact. SKIN: Warm and dry. IMPRESSION: 1. Possible pneumonia with congestive heart failure exacerbation; however, the BNP was only 200, and not compatible with significant congestive heart failure. He always says he has some chronic edema in the lower extremities and also has obesity, which may be contributing some to the lower extremity edema as well as most likely underlying chronic obstructive pulmonary disease. He may have some degree of cor pulmonale or right-sided heart failure causing further degree of lower extremity edema. 2. Coronary artery disease. This appears to be stable at this time. We will try to obtain records from his epilepsy physician in [place] to determine exactly what the stress test showed and whether or not he is at risk for any significant amount of myocardium. If so, he may need to undergo cardiac catheterization earlier. He did have an appointment set up, I believe, for next week with his epilepsy physician to undergo a repeat cardiac catheterization. However, with his degree of coughing, we will need to hopefully address this issue somewhat first before we proceed with cardiac catheterization or further interventions. 3. History of peripheral vascular disease. This appears to be stable at this time. I would agree with the present management. 4. History of pulmonary emboli. He has been placed on Xarelto. He will continue on this medication. He has been on Plavix through the stents as well as an aspirin. 5. Hypertension. This is under good control at this time, would agree with his present medications. 6. Sleep apnea. He is awaiting a CPAP mask from his family members. 7. Chronic obstructive pulmonary disease. The patient continued to smoke until just a few days ago. This will be dealt with by the primary care service or by a bone char kiln operator if this has been requested. At this time from a cardiac standpoint, overall, he appears to be relatively stable. We will be glad to continue to follow the patient with you throughout his hospital course. Job ID: [id number]
[2019-02-23] MEDS: Metoprolol Tartrate 25 MG TAB PO SCH (10:23)
[2019-02-23] MEDS: methylPREDNISolone Sod Succ 40 MG VIAL IVP SCH ×3 (11:32→23:05)
--- NOTE | 2019-02-23 12:31 | PDOC.CTH ---
Cardiology Progress Note - Subjective The pt seen and examined. No overnight events. No cardiac complaints. - Objective Vital Signs Temp Pulse Resp BP Pulse Ox 02/23/19 11:27 98.9 F 93 20 124/66 99 02/23/19 07:45 92 L 02/23/19 07:32 98.1 F 99 20 93/50 L 92 L 02/23/19 06:41 82 20 98 02/23/19 04:00 98.8 F 100 18 119/55 L 93 L 02/23/19 02:21 95 20 103/57 L Weight 5.496 oz 02/22/19 02/23/19 02/24/19 06:59 06:59 06:59 Intake Total 1070 1480 Output Total 2650 2550 Balance -1580 -1070 - Physical Examination General/Neuro: alert & oriented x3 Neck: no JVD present Lungs: other: (wheezing and coarses) Heart: RRR Abdomen: soft Extremities: other: (2-3+ pitting BLE edema) - Telemetry Telemetry Rhythm: SR - Labs Result Diagrams: 02/22/19 04:16 02/22/19 04:16 Troponin/CKMB Troponin I Less than 0.010 ng/mL (< 0.028) 02/22/19 04:16 - Assessment/Plan 1. Acute on Chronic diastolic HF - his Resp is stable with Lasix IV; On Lasix, Lisinopril and Metoprolol, which is changed to Bystolic 2.5mg qd for hx of COPD and CHF 2. CAD with hx of stent in 2017 - stable; on Plavix, ASA, bblocker, and statin 3. Severe PVD with stent x2 in 2018 - stable; on Plavix, ASA, bblocker, and statin 4. HTN - Decrease Lisnopril to 10mg qd and Bystolic to 2.5mg qd. 5. Hyperlipidemia - on Statin 6. COPD - managed by crane follower 7. Sleep apnea with Cpap at HS 8. Gout - 9. Tobacco/ETOH abuse - smoking/ETOH cessation education given to the pt MAR reviewed Pt. seen and eval. by me. I agree with the A/P by the STAFFING OPERATIONS MANAGER. No new complaints. Chest: diffuse wheezing. RRR. gjm Review of Systems - Review of Systems Constitutional: reports: no symptoms reported EENTM: reports: no symptoms reported Respiratory: reports: cough, orthopnea, shortness of breath, SOB at rest Cardiac (ROS): reports: no symptoms reported ABD/GI: reports: no symptoms reported : reports: no symptoms reported Musculoskeletal: reports: no symptoms reported
[2019-02-23] MEDS ORDERED: Nebivolol HCl 2.5 MG TAB PO SCH ×2 (13:00)
[2019-02-23] MEDS: Azithromycin 500 MG in Sodium Chloride 0.9% 250 ML 250 ML IVPB SCH (13:25)
[2019-02-23] MEDS: cefTRIAXone\\ROCEPHIN 1 GM in Sodium Chloride 0.9% 100 ML IVPB SCH (14:56)
--- NOTE | 2019-02-23 16:56 | CON ---
DATE OF CONSULTATION: CONSULTING PROVIDERS: DALLIN Severino, from Dr. Osborn' group. REASON FOR CONSULTATION: Necessity of continuing Xarelto. HISTORY OF PRESENT ILLNESS: Mr. Hatch is a pleasant 59-year-old male from [place], [place]. Prior to this admission, he had received all of his care to doctors in the [place] area. When he became ill the other day, he presented to the emergency room in [place], which was the closest facility to his house and he was subsequently transferred here for further care. He has been having episodes of cough and congestion for the last 2 weeks. He has been producing yellow sputum and has been more short of breath than usual. From a Pulmonary standpoint, he has been diagnosed with severe chronic obstructive pulmonary disease. He is currently under the care of chemical mixer at [place] and is pending PFTs and a 6-minute walk next week in that office. He had a pulmonary embolism back in 2014 and has been on anticoagulation ever since with Xarelto. He says this problem is being managed by Dr. Morocho, who is a transaction manager two offices out [facility]. He has been told to stay on the anticoagulation until they have completed a heart workup. PAST MEDICAL HISTORY: 1. Chronic obstructive pulmonary disease. 2. Obstructive sleep apnea. 3. Pulmonary embolism. 4. Hyperlipidemia. 5. Peripheral edema. 6. Peripheral vascular disease. 7. Coronary artery disease. PAST SURGICAL HISTORY: 1. Coronary stent placement in 2017. 2. Colonoscopy. 3. Left hand surgery. FAMILY MEDICAL HISTORY: Remarkable for heart disease, hypertension, stroke, and diabetes mellitus. SOCIAL HISTORY: He averages about 1 pack per day. Used to smoke a pack and half a day. Did go one year without smoking, but started up again about a year ago. He says he has not smoked in the last 4 days. He drinks on the weekends. He is retired from construction. ALLERGIES: NONE. MEDICATIONS: Prior to admission; 1. Gabapentin. 2. Albuterol. 3. Atorvastatin. 4. Dulera. 5. Spiriva. 6. Xarelto. 7. Plavix. 8. Aspirin. 9. Metoprolol. 10. Lisinopril. 11. Furosemide. REVIEW OF SYSTEMS: Remarkable for dyspnea, cough, congestion. No hemoptysis, melena, hematochezia, hematuria, or dysuria. Remaining 12-point review of systems is negative. PHYSICAL EXAMINATION: VITAL SIGNS: Temperature 98.1, pulse 99, respirations 20, O2 saturation 92% on 3 L, and blood pressure 93/50. The patient is 6 feet and 1 inch, weighs 342 pounds. HEENT: Pupils reactive. Sclerae anicteric. Oropharynx, class 4 Mallampati airway. NECK: No adenopathy. No JVD. LUNGS: Diffuse wheezing or rhonchi bilaterally with some crackles at both bases. CARDIAC: S1 and S2 regular without audible murmur. ABDOMEN: Soft, nontender to deep palpation. EXTREMITIES: No clubbing or cyanosis. He has 4+ edema from his knees downward. LABORATORY DATA: White blood cell count 13, hematocrit 39.7, and platelet count 175. Sodium 136, potassium 5.1, chloride 97, CO2 of 33, BUN 23, creatinine 0.9, glucose 118. His x-ray shows a right middle lobe infiltrate. ASSESSMENT: 1. Bronchopneumonia. 2. Chronic obstructive pulmonary disease with exacerbation. 3. History of pulmonary embolism. 4. Sleep apnea. 5. History of coronary artery disease. PLAN: 1. The patient will continue antibiotics. He needs to be put on scheduled nebulization therapy at least every 4 hours. He needs some IV steroids given he has severe bronchospasm. 2. I have no opinion regarding the Xarelto. This problem is being managed by specialist in [place], and they need to make the decision whether or not to continue on that medication. Thank you for the referral. Job ID: [id number]
--- NOTE | 2019-02-23 17:02 | PRG ---
DATE OF SERVICE: 02/23/2019 SUBJECTIVE: The patient still feels short of breath, still has some discomfort in his right chest and complains of the headache that has been present since prior to his admission. Reports that the [place] is helping with the pain. OBJECTIVE: VITAL SIGNS: Temperature 98.8, pulse 91, respirations 18, O2 saturation 96% on 3 L, BP 113/59. GENERAL APPEARANCE: Obese, age-appropriate male, is in no distress, a bit somnolent, appropriate when awakened. HEENT: PERRL. Pupils slightly constricted. HEART: Regular rate and rhythm without murmurs. LUNGS: Slight diminished rales at the right base. ABDOMEN: Soft, nontender, and nondistended. EXTREMITIES: No cyanosis, clubbing, or edema. NEUROLOGICAL: Grossly intact. No focal deficits. LABORATORY DATA: Echocardiogram results showed evidence of pulmonary hypertension with preserved ejection fraction. IMPRESSION AND PLAN: 1. Pneumonia, right middle and lower lobes. Continue Rocephin and azithromycin. 2. Chronic obstructive pulmonary disease, continue steroids and nebulizer treatments. 3. Pulmonary hypertension, may be transient due to the infiltrates, will need to be reassessed once the patient is resolved the pneumonia. Pulmonary embolism is unlikely given the fact that he is on Xarelto; however, may need CT at some point. 4. Morbid obesity, stable. 5. Gastroesophageal reflux disease, chronic, stable. Acute on chronic diastolic heart failure, followed by Cardiology, considering change to beta domo given the chronic obstructive pulmonary disease. 6. Coronary artery disease, on Plavix and aspirin, beta blockers, and statin. 7. Severe peripheral vascular disease, stable. Job ID: [id number]
[2019-02-23] MEDS: Atorvastatin Calcium 40 MG TAB PO SCH (21:16)
[2019-02-24] MEDS: methylPREDNISolone Sod Succ 40 MG VIAL IVP SCH ×4 (06:18→20:52)
[2019-02-24] MEDS: Furosemide 40 MG/4 ML VIAL SLOW IVP SCH ×2 (06:19→13:08)
[2019-02-24] MEDS: HYDROcodone/Acetaminophen 5/325 mg Tablet PO PRN ×3 (06:24→18:55)
[2019-02-24] MEDS: Nebivolol HCl 2.5 MG TAB PO SCH (09:01)
[2019-02-24] MEDS: Rivaroxaban 10 MG TAB PO SCH (09:01)
[2019-02-24] MEDS: Clopidogrel Bisulfate 75 MG TAB PO SCH (09:02)
[2019-02-24] MEDS: Aspirin 81 mg Enteric Coated Tablet PO SCH (09:02)
[2019-02-24] MEDS: Lisinopril 10 MG TAB PO SCH (09:02)
[2019-02-24] MEDS: Allopurinol 300 MG TAB PO SCH (09:02)
--- NOTE | 2019-02-24 09:56 | PRG ---
DATE OF SERVICE: 02/24/2019 SUBJECTIVE: The patient feels better today compared to yesterday. OBJECTIVE: VITAL SIGNS: Temperature 97.5, pulse 81, respirations 20, O2 saturations 96% on 3 L, and blood pressure 100/60. HEENT: Unremarkable. NECK: No JVD or bruits. LUNGS: Mild bilateral end-expiratory wheezing. CARDIAC: S1 and S2. Regular. ABDOMEN: Soft. EXTREMITIES: Edema. LABORATORY DATA: No new labs were done today. ASSESSMENT: 1. Bronchopneumonia. 2. Chronic obstructive pulmonary disease with exacerbation. 3. History of pulmonary embolism. 4. Sleep apnea. 5. History of coronary artery disease. PLAN: Continue the antibiotics, nebs, and steroids. The issue of the Olga will be determined by the outpatient Pulmonary and Cardiology physicians. Job ID: [id number]
--- NOTE | 2019-02-24 10:12 | PDOC.PN ---
- Subjective Encounter Start Date: 02/24/19 Encounter Start Time: 11:20 Subjective: Patient breathing a little better. O2 at 3L. Uses 2L at home. No chest -: pain. Cough improving. - Objective MAR Reviewed: Yes Vital Signs & Weight: Vital Signs (12 hours) Temp Pulse Resp BP Pulse Ox 02/24/19 08:00 97.5 F L 71 20 100/60 96 02/24/19 07:20 65 14 98 02/24/19 04:00 97.5 F L 73 20 108/56 L 98 02/24/19 02:11 56 L 14 Weight Weight 344 lb 1.6 oz I&O: 02/23/19 02/24/19 02/25/19 06:59 06:59 06:59 Intake Total 1480 1210 Output Total 2550 1950 Balance -1070 -740 Result Diagrams: 02/22/19 04:16 02/22/19 04:16 Phys Exam - Physical Examination Constitutional: NAD HEENT: moist MMs Respiratory: no rales, no rhonchi, wheezing present scattered, decent air movement Cardiovascular: RRR Gastrointestinal: soft, positive bowel sounds Neurological: non-focal, moves all 4 limbs Psychiatric: normal affect, A&O x 3 Dx/Plan (1) Pneumonia Code(s): J18.9 - PNEUMONIA, UNSPECIFIED ORGANISM Status: Acute Qualifiers: Laterality: right Lung location: lower lobe of lung Comment: on Rocephin and Azithromycin since 02/21/2019 (2) COPD with exacerbation Code(s): J44.1 - CHRONIC OBSTRUCTIVE PULMONARY DISEASE W (ACUTE) EXACERBATION Status: Acute Comment: on abx, nebs, steroids (3) Acute on chronic diastolic (congestive) heart failure Code(s): I50.33 - ACUTE ON CHRONIC DIASTOLIC (CONGESTIVE) HEART FAILURE Status : Acute Comment: on furosemide, Dr. Osborn following (4) Chronic anticoagulation Code(s): Z79.01 - SENIOR CARE (CURRENT) USE OF ANTICOAGULANTS Status: Chronic Comment: on Xarelto for previous PE (5) CAD (coronary artery disease) Code(s): I25.10 - ATHSCL HEART DISEASE OF [place] CORONARY ARTERY W/O ANG PCTRS Status: Chronic (6) Dyslipidemia Code(s): E78.5 - HYPERLIPIDEMIA, UNSPECIFIED Status: Chronic (7) GERD (gastroesophageal reflux disease) Code(s): K21.9 - GASTRO-ESOPHAGEAL REFLUX DISEASE WITHOUT ESOPHAGITIS Status: Chronic (8) Hypertension Code(s): I10 - ESSENTIAL (PRIMARY) HYPERTENSION Status: Chronic (9) Morbid obesity with BMI of 45.0-49.9, adult Code(s): E66.01 - MORBID (SEVERE) OBESITY DUE TO EXCESS CALORIES; Z68.42 - BODY MASS INDEX (BMI) 45.0-49.9, ADULT Status: Chronic - Plan cont current plan of care, continue antibiotics, out of bed/ambulate * . - Discharge Day Encounter end time: 11:30
[2019-02-24] MEDS: Azithromycin 500 MG in Sodium Chloride 0.9% 250 ML 250 ML IVPB SCH (13:08)
[2019-02-24] MEDS: cefTRIAXone\\ROCEPHIN 1 GM in Sodium Chloride 0.9% 100 ML IVPB SCH (13:10)
--- NOTE | 2019-02-24 14:12 | PDOC.CTH ---
Cardiology Progress Note - Subjective The pt seen and examined. No overnight events. No cardiac complaints. He stated he can breath better with steroid. - Objective Vital Signs Temp Pulse Resp BP Pulse Ox 02/24/19 12:00 97.5 F L 80 20 110/55 L 98 02/24/19 08:00 97.5 F L 71 20 100/60 96 02/24/19 07:20 65 14 98 02/24/19 04:00 97.5 F L 73 20 108/56 L 98 Weight 344 lb 1.6 oz 02/23/19 02/24/19 02/25/19 06:59 06:59 06:59 Intake Total 1480 1210 240 Output Total 2550 1950 Balance -1070 -740 240 - Physical Examination General/Neuro: alert & oriented x3 Neck: no JVD present Lungs: other: (diminished at bases) Abdomen: soft Extremities: other: (2+ pitting BLE edema) - Telemetry Telemetry Rhythm: SR - Labs Result Diagrams: 02/25/19 06:20 02/25/19 06:20 Troponin/CKMB Troponin I Less than 0.010 ng/mL (< 0.028) 02/22/19 04:16 - Assessment/Plan 1. Acute on Chronic diastolic HF - his Resp is stable with Lasix IV; On Lasix, Lisinopril and Metoprolol, which is changed to Bystolic 2.5mg qd for hx of COPD and CHF 2. CAD with hx of stent in 2016 - stable; on Plavix, ASA, bblocker, and statin 3. Severe PVD with stent x2 in 2018 - stable; on Plavix, ASA, bblocker, and statin 4. HTN - stable 5. Hyperlipidemia - on Statin 6. COPD ex - managed by sign designer 7. Sleep apnea with Cpap at HS 8. Gout - 9. Tobacco/ETOH abuse - smoking/ETOH cessation education given to the pt MAR reviewed Pt. seen and eval. by me. I agree with the A/P by the INFECTIOUS WASTE TECHNICIAN. He plans on f/u with his prior head of talent management once the pulmonary status is stable. Chest: diffuse wheezing. RRR, no significant edema. gjm Review of Systems - Review of Systems Constitutional: reports: no symptoms reported EENTM: reports: no symptoms reported Respiratory: reports: no symptoms reported Cardiac (ROS): reports: no symptoms reported ABD/GI: reports: no symptoms reported : reports: no symptoms reported Musculoskeletal: reports: no symptoms reported
[2019-02-24] MEDS: Acetaminophen 325 MG TAB PO PRN (20:51)
[2019-02-24] MEDS: Atorvastatin Calcium 40 MG TAB PO SCH (20:51)
[2019-02-24] MEDS: Zolpidem Tartrate 5 MG TAB PO PRN (20:55)
[2019-02-25] MEDS: HYDROcodone/Acetaminophen 5/325 mg Tablet PO PRN ×4 (00:10→20:11)
[2019-02-25] MEDS: methylPREDNISolone Sod Succ 40 MG VIAL IVP SCH (04:57)
[2019-02-25] MEDS: Furosemide 40 MG/4 ML VIAL SLOW IVP SCH ×2 (04:59→15:41)
[2019-02-25 07:08] LABS: #Lymphocytes 0.6 thou/uL (1.20-3.40); #Monocytes 0.6 thou/uL (0.11-0.59); #Neutrophils 9.1 thou/uL (1.40-6.50); %Eosinophils 0.2 % (0.0-10.0); %Lymphocytes 5.4 % (21.0-51.0); %Monocytes 5.9 % (0.0-10.0); %Neutrophils 88.6 % (42.0-75.0); Hemoglobin 13.1 g/dL (14.0-18.0); Mean Corpuscular HGB CONC 30.9 g/dL (32.0-36.0); Mean Corpuscular Hemoglobin 27.8 pg (27.0-31.0); Mean Corpuscular Volume 89.8 fL (78.0-98.0); Mean Platelet Volume 7.4 fL (7.4-10.4); Platelet Count 188 thou/uL (130-400); RBC Distribution Width 12.9 % (11.5-14.5); Red Blood Cell (RBC) Count 4.71 mill/uL (4.70-6.10); White Blood Cell (WBC) Count 10.2 thou/uL (4.8-10.8)
[2019-02-25 07:31] LABS: BUN (Urea Nitrogen) 26 mg/dL (8.4-25.7); Calc. Creatinine Clearance 197 mL/min (70-130); Calcium 9.5 mg/dL (7.8-10.44); Estimated GFR-MDRD 86; Glucose 152 mg/dL (70-105)
[2019-02-25 07:41] LABS: Anion Gap 17 mmol/L (10-20); Carbon Dioxide 36 mmol/L (22-29); Chloride 88 mmol/L (98-107); Potassium 5.2 mmol/L (3.5-5.1); Sodium 136 mmol/L (136-145)
[2019-02-25] MEDS: Clopidogrel Bisulfate 75 MG TAB PO SCH (08:39)
[2019-02-25] MEDS: Lisinopril 10 MG TAB PO SCH (08:39)
[2019-02-25] MEDS: guaiFENesin ER 600 MG TAB PO PRN (08:40)
[2019-02-25] MEDS: Allopurinol 300 MG TAB PO SCH (08:40)
[2019-02-25] MEDS: Aspirin 81 mg Enteric Coated Tablet PO SCH (08:40)
[2019-02-25] MEDS: Rivaroxaban 10 MG TAB PO SCH (08:40)
[2019-02-25] MEDS: Nebivolol HCl 2.5 MG TAB PO SCH (08:45)
--- NOTE | 2019-02-25 09:07 | PDOC.CTH ---
Cardiology Progress Note - Subjective The pt seen and examined. No overnight events. No cardiac complaints. - Objective Vital Signs Temp Pulse Resp BP Pulse Ox 02/25/19 07:44 94 L 02/25/19 07:41 67 16 94 L 02/25/19 04:00 97.8 F 66 18 110/55 L 95 02/25/19 01:37 67 16 92 L 02/24/19 21:51 78 20 93 L Weight 346 lb 14.4 oz 02/24/19 02/25/19 02/26/19 06:59 06:59 06:59 Intake Total 1210 1840 Output Total 1950 3750 Balance -740 -1910 - Physical Examination General/Neuro: alert & oriented x3 Neck: no JVD present Lungs: other: (diminished at bases) Heart: RRR Abdomen: soft Extremities: other: - Telemetry Telemetry Rhythm: SR - Labs Result Diagrams: 02/25/19 06:20 02/25/19 06:20 Troponin/CKMB Troponin I Less than 0.010 ng/mL (< 0.028) 02/22/19 04:16 - Assessment/Plan 1. Acute on Chronic diastolic HF - his Resp is stable with Lasix IV; On Lasix, Lisinopril and Bystolic 2.5mg qd for hx of COPD and CHF 2. CAD with hx of stent in 2017 - stable; on Plavix, ASA, bblocker, and statin 3. Severe PVD with stent x2 in 2018 - stable; on Plavix, ASA, bblocker, and statin 4. HTN - stable 5. Hyperlipidemia - on Statin 6. COPD ex - managed by bakery decorator 7. Sleep apnea with Cpap at HS 8. Gout - 9. Tobacco/ETOH abuse - smoking/ETOH cessation education given to the pt 10. Hx of PE in 2013 or 2014 - cont. Xarelto until he f/u with his Clinical Coordinator as outpt. MAR reviewed Pt, seen and eval. He has his CPAP mask on . He continues to have some wheezing but significantly improved from admission.I agree with the A/P by the WASTE/MATERIALS EXCHANGE SPECIALIST.Probably home in 1-2 days. Review of Systems - Review of Systems Constitutional: reports: no symptoms reported EENTM: reports: no symptoms reported Respiratory: reports: no symptoms reported Cardiac (ROS): reports: no symptoms reported ABD/GI: reports: no symptoms reported : reports: no symptoms reported
--- NOTE | 2019-02-25 09:10 | PDOC.PN ---
- Subjective Encounter Start Date: 02/25/19 Encounter Start Time: 10:10 Subjective: Patient feeling better. Ambulating well. SOB improved. - Objective MAR Reviewed: Yes Vital Signs & Weight: Vital Signs (12 hours) Temp Pulse Resp BP Pulse Ox 02/25/19 07:44 94 L 02/25/19 07:41 67 16 94 L 02/25/19 04:00 97.8 F 66 18 110/55 L 95 02/25/19 01:37 67 16 92 L 02/24/19 21:51 78 20 93 L Weight Weight 346 lb 14.4 oz I&O: 02/24/19 02/25/19 02/26/19 06:59 06:59 06:59 Intake Total 1210 1840 Output Total 1950 3750 Balance -740 -1910 Result Diagrams: 02/25/19 06:20 02/25/19 06:20 Phys Exam - Physical Examination Constitutional: NAD HEENT: moist MMs Respiratory: no wheezing, no rales, no rhonchi improved air movement today Cardiovascular: RRR Gastrointestinal: soft, positive bowel sounds bilateral compression wraps to legs in place Neurological: non-focal, moves all 4 limbs Psychiatric: normal affect, A&O x 3 Dx/Plan (1) Pneumonia Code(s): J18.9 - PNEUMONIA, UNSPECIFIED ORGANISM Status: Acute Qualifiers: Laterality: right Lung location: lower lobe of lung Comment: on Rocephin and Azithromycin since 02/21/2019 (2) COPD with exacerbation Code(s): J44.1 - CHRONIC OBSTRUCTIVE PULMONARY DISEASE W (ACUTE) EXACERBATION Status: Acute Comment: on abx, nebs, steroids (3) Acute on chronic diastolic (congestive) heart failure Code(s): I50.33 - ACUTE ON CHRONIC DIASTOLIC (CONGESTIVE) HEART FAILURE Status : Acute Comment: on furosemide, Dr. Osborn following (4) Chronic anticoagulation Code(s): Z79.01 - SENIOR CARE (CURRENT) USE OF ANTICOAGULANTS Status: Chronic Comment: on Xarelto for previous PE (5) CAD (coronary artery disease) Code(s): I25.10 - ATHSCL HEART DISEASE OF [place] CORONARY ARTERY W/O ANG PCTRS Status: Chronic (6) Dyslipidemia Code(s): E78.5 - HYPERLIPIDEMIA, UNSPECIFIED Status: Chronic (7) GERD (gastroesophageal reflux disease) Code(s): K21.9 - GASTRO-ESOPHAGEAL REFLUX DISEASE WITHOUT ESOPHAGITIS Status: Chronic (8) Hypertension Code(s): I10 - ESSENTIAL (PRIMARY) HYPERTENSION Status: Chronic (9) Morbid obesity with BMI of 45.0-49.9, adult Code(s): E66.01 - MORBID (SEVERE) OBESITY DUE TO EXCESS CALORIES; Z68.42 - BODY MASS INDEX (BMI) 45.0-49.9, ADULT Status: Chronic (10) Hyperkalemia Code(s): E87.5 - HYPERKALEMIA Status: Acute Comment: mild, going up inspite of furosemide, may need to d/c PANCHO-I though already decreased yesterday - Plan cont current plan of care, continue antibiotics changing to oral meds per pulmonology today, will try weaning down to -: home level of O2 2L. Possibly home in the morning. * . - Discharge Day Encounter end time: 10:30
--- NOTE | 2019-02-25 10:07 | PRG ---
DATE OF SERVICE: 02/25/2019 SUBJECTIVE: The patient is doing better. He is up, walking around some. OBJECTIVE: VITAL SIGNS: Temperature 97.8, pulse 67, blood pressure 110/55, O2 saturation 94% on 3 L. HEENT: Unremarkable. NECK: No JVD. LUNGS: He has a faint end-expiratory wheeze. CARDIAC: S1, S2. Regular. ABDOMEN: Soft. EXTREMITIES: No edema. LABORATORY DATA: White blood cell count 10.2, hematocrit 42.3, and platelet count 188. Sodium 136, potassium 5.2, chloride 88, CO2 of 36, BUN 26, creatinine 0.9, glucose 152. ASSESSMENT: 1. Chronic obstructive pulmonary disease with exacerbation. 2. Bronchial pneumonia. 3. History of pulmonary embolism. 4. Sleep apnea. 5. Coronary artery disease. PLAN: 1. I will go ahead and repeat his chest x-ray. 2. Convert over to oral antibiotic medication. 3. Convert to oral steroids. 4. Probably ready to go home soon. Job ID: [id number]
[2019-02-25] MEDS: predniSONE 20 MG TAB PO SCH (12:21)
[2019-02-25] MEDS: Atorvastatin Calcium 40 MG TAB PO SCH (20:12)
[2019-02-25] MEDS: Zolpidem Tartrate 5 MG TAB PO PRN (20:12)
[2019-02-26] MEDS: Furosemide 40 MG/4 ML VIAL SLOW IVP SCH (05:07)
[2019-02-26 05:53] LABS: #Eosinphils 0.1 thou/uL (0.0-0.7); #Lymphocytes 0.8 thou/uL (1.20-3.40); #Monocytes 0.9 thou/uL (0.11-0.59); #Neutrophils 6.6 thou/uL (1.40-6.50); %Basophils 0.4 % (0.0-1.0); %Eosinophils 0.8 % (0.0-10.0); %Lymphocytes 9.7 % (21.0-51.0); %Monocytes 10.3 % (0.0-10.0); %Neutrophils 78.8 % (42.0-75.0); Hemoglobin 12.7 g/dL (14.0-18.0); Mean Corpuscular HGB CONC 30.9 g/dL (32.0-36.0); Mean Corpuscular Hemoglobin 27.8 pg (27.0-31.0); Mean Corpuscular Volume 89.8 fL (78.0-98.0); Mean Platelet Volume 7.3 fL (7.4-10.4); Platelet Count 187 thou/uL (130-400); Red Blood Cell (RBC) Count 4.57 mill/uL (4.70-6.10); White Blood Cell (WBC) Count 8.3 thou/uL (4.8-10.8)
[2019-02-26 06:09] LABS: BUN (Urea Nitrogen) 29 mg/dL (8.4-25.7); Calc. Creatinine Clearance 202 mL/min (70-130); Calcium 9.3 mg/dL (7.8-10.44); Estimated GFR-MDRD Greater than 90; Glucose 102 mg/dL (70-105)
[2019-02-26 06:18] LABS: Anion Gap 15 mmol/L (10-20); Carbon Dioxide 38 mmol/L (22-29); Chloride 88 mmol/L (98-107); Potassium 4.6 mmol/L (3.5-5.1); Sodium 136 mmol/L (136-145)
--- NOTE | 2019-02-26 07:46 | RAD ---
Chest AP view INDICATION: Pneumonia COMPARISON: February 21, 2019 FINDINGS:The right lower lobe airspace opacity has improved. Some reticular nodular opacities remain within this region. Continued follow-up is recommended. Cardiomegaly stable. Left lung is clear. No acute osseous abnormality is evident. IMPRESSION: Improving pneumonia. Recommend continued radiographic follow-up.
[2019-02-26] MEDS ORDERED: Cefdinir 300 MG CAP PO SCH (09:00)
[2019-02-26] MEDS ORDERED: Azithromycin 250 MG TAB PO SCH (09:00)
--- NOTE | 2019-02-26 09:30 | PRG ---
DATE OF SERVICE: 02/26/2019 SUBJECTIVE: He is feeling good today, had no acute complaints. OBJECTIVE: VITAL SIGNS: Temperature 97.8, pulse 70, respirations 20, O2 saturation 99% on 2 L, blood pressure 127/60. HEENT: Unremarkable. NECK: No JVD. LUNGS: Clear to auscultation anteriorly. CARDIAC: S1, S2 regular. ABDOMEN: Soft. EXTREMITIES: No edema. LABORATORY DATA: White blood cell count 8.3, hematocrit 41.1, and platelet count 187. Sodium 136, potassium 4.6, chloride 88, CO2 of 30, BUN 29, creatinine 0.8, glucose 102. X-ray shows resolution of the pulmonary infiltrates. ASSESSMENT: 1. Bronchial pneumonia. 2. Chronic obstructive pulmonary disease with exacerbation. 3. History of pulmonary embolism. 4. Obstructive sleep apnea. 5. Coronary artery disease. PLAN: This patient is stable for hospital discharge. He has an outpatient meat grader in [place] who he will be seeing. I would send him home on to complete 10 days of antibiotics between hospital and home, wean prednisone over 2 weeks. Job ID: [id number]
[2019-02-26] MEDS: Allopurinol 300 MG TAB PO SCH (09:34)
[2019-02-26] MEDS: Aspirin 81 mg Enteric Coated Tablet PO SCH (09:34)
[2019-02-26] MEDS: Lisinopril 10 MG TAB PO SCH (09:34)
[2019-02-26] MEDS: Clopidogrel Bisulfate 75 MG TAB PO SCH (09:34)
[2019-02-26] MEDS: Rivaroxaban 10 MG TAB PO SCH (09:34)
[2019-02-26] MEDS: Nebivolol HCl 2.5 MG TAB PO SCH (09:34)
--- NOTE | 2019-02-26 10:39 | PDOC.CTH ---
Cardiology Progress Note - Subjective The pt seen and examined. No overnight events. No cardiac complaints. He walked today without any difficulties. - Objective Vital Signs Temp Pulse Resp BP Pulse Ox 02/26/19 07:58 97.8 F 70 20 127/60 68 L 02/26/19 07:55 95 02/26/19 07:42 99 02/26/19 07:38 63 15 99 02/26/19 04:05 97.7 F 67 18 120/65 95 Weight 340 lb 02/25/19 02/26/19 02/27/19 06:59 06:59 06:59 Intake Total 1840 1600 Output Total 3750 3150 Balance -1910 -1550 - Physical Examination General/Neuro: alert & oriented x3 Neck: no JVD present Lungs: other: (diminished at bases) Heart: RRR Abdomen: soft Extremities: other: (1-2+ pitting BLE edema; PANCHO wrap) - Telemetry Telemetry Rhythm: SR - Labs Result Diagrams: 02/26/19 05:24 02/26/19 05:24 Troponin/CKMB Troponin I Less than 0.010 ng/mL (< 0.028) 02/22/19 04:16 - Assessment/Plan 1. Acute on Chronic diastolic HF - his Resp is stable with Lasix IV 40mg BID, which changed to PO BID; On Lisinopril and Bystolic 2.5mg qd for hx of COPD and CHF 2. CAD with hx of stent in 2017 - stable; on Plavix, ASA, bblocker, and statin 3. Severe PVD with stent x2 in 2018 - stable; on Plavix, ASA, bblocker, and statin 4. HTN - stable 5. Hyperlipidemia - on Statin 6. COPD ex - managed by pipe insulator 7. Sleep apnea with Cpap at HS 8. Gout - 9. Tobacco/ETOH abuse - smoking/ETOH cessation education given to the pt 10. Hx of PE in 2013 or 2014 - cont. Xarelto until he f/u with his Receivable Executive as outpt. MAR reviewed * From Cardiac standpoint, the pt is stable to d/c home. He will F/u with his Sanitation Director in [place] and Receivable Executive in [place] Review of Systems - Review of Systems Constitutional: reports: no symptoms reported EENTM: reports: no symptoms reported Respiratory: reports: no symptoms reported Cardiac (ROS): reports: no symptoms reported ABD/GI: reports: no symptoms reported : reports: no symptoms reported Musculoskeletal: reports: no symptoms reported
[2019-02-26] MEDS: HYDROcodone/Acetaminophen 5/325 mg Tablet PO PRN (12:19)
[2019-02-26] MEDS: predniSONE 20 MG TAB PO SCH (12:20)
[2019-02-26] MEDS ORDERED: Furosemide 40 MG TAB PO SCH (14:00)
[2019-02-26 16:03] VITALS: BP 112/63; TEMP 97.9
--- NOTE | 2019-02-26 21:07 | PDOC.EVN ---
Event Note - Event Note Event Note: pt on asa/plavix and xarelto. pt states that his last cardiac stent was in 2017. I recommended him to stop the asa and continue plavix and xarelto.
--- NOTE | 2019-02-27 03:33 | DIS ---
DATE OF ADMISSION: 02/21/2019 DATE OF DISCHARGE: 02/26/2019 DISCHARGE DIAGNOSES: As of the followin. Pneumonia. 2. Chronic obstructive pulmonary disease exacerbation. 3. Acute on chronic diastolic heart failure. 4. Chronic anticoagulation. 5. Coronary artery disease. HOSPITAL COURSE: The patient is a very pleasant 59-year-old male, who initially came into the hospital on the with complaints of shortness of breath and cough. The patient at that time was treated with IV antibiotics for right middle lobe and right lower lobe pneumonia. The patient also was started on steroids given his history. The patient was seen by Pulmonology and by Cardiology due to the patient's diagnosis of severe COPD. The patient continued to improve throughout the whole hospital stay. His echocardiogram indicated an EF of 55% to 60% with mild LVH, and he had some moderate enlargement of this right atrium. The patient normally follows up with his hammer adjuster in [place]. He was asked to follow up with his hammer adjuster. The patient was on aspirin, Plavix, and Xarelto. I did advise the patient to stop aspirin and continue with the Plavix and the Xarelto. The patient has a history of bilateral PE. I recommended him to follow up with his hammer adjuster to see if he needs to continue taking the Xarelto. He does have a history of CAD and has stents, which I would continue the Plavix for now. However, patient was on triple therapy, which I thought was not necessary. The patient was stable on the day of discharge. He was able to walk without any difficulties. DISCHARGE MEDICATIONS: His home medications were as of the following; 1. Albuterol 1 puff q.6 hours p.r.n. 2. Omnicef 600 daily for the next 5 days. 3. Lasix 40 mg b.i.d. 4. Lisinopril 10 mg daily. 5. Dulera 2 puffs b.i.d., this patient takes it at home. 6. Bystolic 2.5 daily. 7. Prednisone taper patch, taper for 2 weeks. 8. Plavix 75 mg daily. 9. Gabapentin 300 mg t.i.d. 10. Allopurinol 300 mg daily. 11. Rosuvastatin 20 mg daily. 12. Xarelto 20 mg daily. PHYSICAL EXAMINATION: VITAL SIGNS: Temperature 97.7, heart rate 71, respiratory rate 20, saturation 96% on 2 L that is his home oxygen. The patient is on 2 L of home oxygen, which is at baseline. Blood pressure 112/63. GENERAL: He is awake, alert, and oriented . Does not appear in distress. CV: S1 and S2 present. No murmurs, rubs, or gallops. LUNGS: Mild rhonchi and mild wheezing all over lungs. ABDOMEN: Soft and nontender. Bowel sounds are present x2. EXTREMITIES: No edema. Pedal pulses are present x2. The patient does use a CPAP, which he has brought from home. The patient was seen by Pulmonology and Cardiology and was okay to be discharged home. The patient will follow up with his PCP in [place] and also with his hammer adjuster in [place]. Job ID: [id number]
== END 2019-02-26 18:10 | disposition home or self-care (01) | DRG 291 ==
LOC: ERS 10:50 → 2NO 11:22
PROVIDERS: ADMIT Internal Medicine; ATTEND Internal Medicine
DX: I11.0 Hypertensive heart disease with heart failure (principal); J18.1 Lobar pneumonia, unspecified organism; Z68.41 Body mass index [BMI] 40.0-44.9, adult; E87.3 Alkalosis; J44.1 Chronic obstructive pulmonary disease with (acute) exacerbation; I50.33 Acute on chronic diastolic (congestive) heart failure; F17.210 Nicotine dependence, cigarettes, uncomplicated; M10.9 Gout, unspecified; E87.5 Hyperkalemia; E78.5 Hyperlipidemia, unspecified; G47.30 Sleep apnea, unspecified; I73.9 Peripheral vascular disease, unspecified; I25.10 Atherosclerotic heart disease of native coronary artery without angina pectoris; E66.01 Morbid (severe) obesity due to excess calories; K21.9 Gastro-esophageal reflux disease without esophagitis; Z79.01 Long term (current) use of anticoagulants; Z95.5 Presence of coronary angioplasty implant and graft; Z95.820 Peripheral vascular angioplasty status with implants and grafts
CPT/HCPCS: 36415; 71045; 80048; 84484; 85025; 93306; 93970; 94640; 99285; J0456; J0696; J1940; J2270; J2920; J3490; J7050; J7512; J7620